=== PATIENT | female | born 1945 | race Hispanic/Latino ===

== ENCOUNTER 2020-12-18 05:44 | Day surgery (SDC) | payer OTHER ==
[2020-12-14 11:10] LABS: APPEARANCE,URINE Clear (CLEAR); BILIRUBIN,URINE Negative (NEGATIVE); COLOR,URINE Yellow (YELLOW); GLUCOSE, URINE (UA) >=1000 mg/dL (NEGATIVE); KETONES,URINE Negative (NEGATIVE); LEUKOCYTE ESTERASE ,URINE Small (NEGATIVE); NITRATE,URINE Negative (NEGATIVE); OCCULT BLOOD,URINE Negative (NEGATIVE); PROTEIN,URINE Negative (NEGATIVE); UROBILINOGEN,URINE 0.2 mg/dL (0.2-1.0)
[2020-12-14 11:13] LABS: BASOPHILS % (AUTO) 0.5 % (0.0-5.0); EOSINOPHILS % (AUTO) 1.3 % (0.0-8.0); HEMATOCRIT 39.7 % (36-48); LYMPHOCYTES % (AUTO) 42.6 % (21.0-51.0); MEAN CORPUSCULAR HEMOGLOBIN 30.5 pg (27.0-33.0); MEAN CORPUSCULAR VOLUME 98.5 fL (79-99); MONOCYTES % (AUTO) 5.6 % (3.0-13.0); NEUTROPHILS % (AUTO) 49.8 % (40.0-77.0); PLATELET COUNT (AUTO) 245 K/uL (130-400); RED BLOOD CELL COUNT(AUTO) 4.03 MIL/uL (4.00-5.50); RED CELL DISTRIBUTION WIDTH 13.5 % (11.0-15.5); WHITE BLOOD COUNT (AUTO) 6.4 K/uL (4.8-10.8)
[2020-12-14 11:16] LABS: CREATININE 0.9 mg/dL (0.5-1.5); POTASSIUM 4.9 mmol/L (3.5-5.1)
[2020-12-14 11:20] LABS: BACTERIA,URINE Rare /HPF (None Seen); RBC,URINE None Seen /HPF (0-1); SQUAMOUS EPITHELIAL CELL,UR Few /HPF (0-2)
[2020-12-14 11:27] VITALS: BP 112/69
[2020-12-14 11:37] LABS: INR 0.94 (0.85-1.15); PROTHROMBIN TIME 10.3 SEC (9.6-11.6)
[2020-12-14 11:38] LABS: PARTIAL THROMBOPLASTIN TIME 25.3 SEC (26.3-35.5)
[~2020-12-18] VITALS: Ht 165.1 cm; Wt 53.6 kg
[2020-12-18] VITALS (11 sets, daily range): BP systolic 102–124; BP diastolic 54–84
[~2020-12-18 05:44] MED LIST: SODIUM CHLORIDE 0.9% 1000ML 1,000 ML IV SCH
[2020-12-18] MEDS ORDERED: ASPI-1443 PO (07:03)
[2020-12-18] MEDS ORDERED: METF-446 PO (07:03)
[2020-12-18] MEDS ORDERED: GLIP10TA9 PO (07:03)
[2020-12-18] MEDS ORDERED: EMPA25TA PO (07:03)
[2020-12-18] MEDS ORDERED: LISI2.5T2 PO (07:03)
[2020-12-18] MEDS ORDERED: PRAV40TA3 PO (07:03)
[2020-12-18] MEDS ORDERED: MIDAZOLAM HCL 1 MG/ML 2ML VIAL ONE (07:18)
[2020-12-18] MEDS ORDERED: FENTANYL CITRATE PF 50 MCG/1 ML 2ML VIAL ONE (07:18)
[2020-12-18] MEDS ORDERED: NICARDIPINE HCL 25 MG/10 ML ML IV ONE (07:18)
[2020-12-18] MEDS ORDERED: IODIXANOL 320 MG/ML 100 ML VIAL ONE (07:18)
[2020-12-18] MEDS ORDERED: NITROGLYCERIN 2 MG/VIAL VIAL IV ONE (07:18)
[2020-12-18] MEDS ORDERED: LIDOCAINE HCL 2% 20ML ONE (07:19)
[2020-12-18] MEDS ORDERED: HEPARIN SODIUM 1000UNIT/ML 10ML VIAL ONE (07:19)
[2020-12-18] MEDS ORDERED: CLOPIDOGREL BISULFATE 300 MG TAB ONE (08:37)
[2020-12-18] MEDS ORDERED: ASPIRIN 325MG EC TAB 325 MG TABLET.DR PO ONE (08:37)
[2020-12-18] MEDS ORDERED: SODIUM CHLORIDE 0.9% 1000ML 1,000 ML IV SCH (09:45)
[2020-12-18] MEDS ORDERED: ACETAMINOPHEN 325 MG TAB PO SCH (11:15)
== END 2020-12-18 14:12 | disposition home or self-care (01) ==
LOC: DAH 05:44
PROVIDERS: ATTEND Internal Medicine Cardiovascular Disease
DX: I70.248 Atherosclerosis of native arteries of left leg with ulceration of other part of lower leg (principal); E11.51 Type 2 diabetes mellitus with diabetic peripheral angiopathy without gangrene; F17.210 Nicotine dependence, cigarettes, uncomplicated; Z79.84 Long term (current) use of oral hypoglycemic drugs; Z79.01 Long term (current) use of anticoagulants; Z79.899 Other long term (current) drug therapy; Z98.890 Other specified postprocedural states; Z83.3 Family history of diabetes mellitus; Z79.82 Long term (current) use of aspirin
CPT/HCPCS: 36415; 37225; 71045; 75716; 80048; 81001; 82948; 85025; 85610; 85730; 93005; A4215; A4216; A4221; A4222; A4223 ×3; A4606; A4663; C1760; C1769; C1884; C1887; C1893; C1894 ×2; C2623; J1644 ×3; J2250; J3010; J3490 ×3; J7030; Q9967; 75774; 96360; 96361; 99156; 99157